=== PATIENT | female | born 1975 | race Caucasian/White ===

== ENCOUNTER 2017-10-22 23:54 | Observation (INO) ==
[2017-10-23 01:52] LABS: Basophils # 0.1 10*3/uL (0.0-0.2); Basophils % 0.5 % (0.0-0.8); Eosinophils # 0.2 10*3/uL (0.0-0.87); Eosinophils % 1.6 % (0.00-10.9); Hematocrit 38.5 VOL% (35.7-47.0); Hemoglobin 13.3 GM/DL (12.0-16.0); Immature Granulocytes % 0.6 %; Immature Granulocytes Absolute 0.06 #; Lymphocytes # 2.5 10*3/uL (1.4-4.0); Lymphocytes % 26.8 % (21.3-54.2); Mean Corpuscular HGB Conc 34.5 GM/DL (32-36); Mean Corpuscular Hemoglobin 31 PG (27-34); Mean Corpuscular Volume 90.6 FL (87-102); Monocytes # 0.7 10*3/uL (0.11-0.8); Monocytes % 7.4 % (1.7-12.7); Neutrophils % 63.1 % (38.7-73.9); Platelet Count 246 T/CUMM (130-400); Red Blood Count 4.25 MC/CUMM (3.8-5.5); Red Cell Distribution Width 13.6 % (9.3-17.3); White Blood Count 9.5 T/CUMM (4-12)
[2017-10-23 02:15] LABS: Alanine Aminotransferase < 9 U/L (13-56); Alkaline Phosphatase 101 U/L (45-117); Aspartate Amino Transferase 13 U/L (0-37); Blood Urea Nitrogen 7 MG/DL (7-18); Calcium 8.2 MG/DL (8.5-10.1); Glucose 298 MG/DL (74-106); Osmolality,Calculated 281.8 MOS/KG (273-304); Sodium 137 MMOL/L (136-145); Total Protein 6.7 G/DL (6.4-8.3)
[2017-10-23 02:17] LABS: Troponin I Only 0.264 NG/ML (0.00-0.045)
[2017-10-23] MEDS ORDERED: PROMETHAZINE 25 MG/1 ML VIAL IM PRN (03:03)
[2017-10-23] MEDS ORDERED: DEXTROSE 50% 25 GM/50 ML VIAL IV PRN (03:03)
[2017-10-23] MEDS ORDERED: GLUCAGON 1 MG VIAL IM PRN (03:03)
[2017-10-23] MEDS ORDERED: NICOTINE 21 MG/24 HR PATCH TRANSDERM PRN (03:11)
[2017-10-23] MEDS ORDERED: NITROGLYCERIN SL 0.4 MG TABLET SL PRN (03:12)
[2017-10-23 03:28] LABS: Barbiturates Screen,Urine Negative (Negative); Benzodiazepines Screen,Urine Negative (Negative); Cannabinoid Screen,Urine Negative (Negative); Opiate Screen,Urine Negative (Negative); Phencyclidine Screen,Urine Negative (Negative)
[2017-10-23] MEDS: NITROGLYCERIN 2% OINT 1 INCH/GM PACK TOP SCH ×3 (03:28→21:00)
[2017-10-23] MEDS: SODIUM CHLORIDE 0.9% 1,000 ML IV SCH ×3 (03:30→20:59)
[2017-10-23 03:34] LABS: Apearance,Urine CLEAR (Clear); Bilirubin,Urine Negative (Negative); Blood, Urine Small mg/dL (Negative); Glucose,Urine (UA) >=500 mg/dL (Negative); Ketones,Urine 80 mg/dL (Negative); Nitrite,Urine Negative (Negative); Protein,Urine Negative; Squamous Epithelial Cell,Urine Occasional /HPF (0-10); Urine Color Yellow (Yellow); Urine Specific Gravity 1.027 (1.001-1.035); Urine Urobilinogen < 2.0 EU/DL (0.2-1.0); WBC,Urine 1 /HPF (0-6)
[2017-10-23] MEDS: ONDANSETRON 4 MG/2 ML VIAL IV PRN ×2 (04:27→21:00)
[2017-10-23] MEDS: HYDROmorphone 2 MG/1 ML VIAL IV PRN ×5 (04:27→21:00)
[2017-10-23] MEDS: INSULIN REGULAR 100 UNIT/ML SUBCUT SCH ×3 (06:16→18:47)
[2017-10-23 07:25] LABS: Risk Ratio 5.13
[2017-10-23] MEDS: INSULIN GLARGINE 100 UNIT/ML SUBCUT SCH (09:56)
[2017-10-23] MEDS: OMEGA 3 ACID ETHYL ESTERS 1 GM CAPSULE PO SCH (10:50)
[2017-10-23] MEDS: ASPIRIN EC 81 MG TABLET PO SCH (10:51)
[2017-10-23] MEDS: ENOXAPARIN 40 MG/0.4 ML SYRINGE SUBCUT SCH (10:51)
[2017-10-23] MEDS: DOCUSATE SODIUM 100 MG CAPSULE PO SCH ×2 (10:51→21:00)
[2017-10-23] MEDS: ESCITALOPRAM 10 MG TABLET PO SCH (10:51)
[2017-10-23] MEDS: ATORVASTATIN 20 MG TABLET PO SCH (10:51)
[2017-10-23] MEDS: PANTOPRAZOLE 40 MG TABLET PO SCH (10:59)
[2017-10-23] MEDS: TAMSULOSIN 0.4 MG CAPSULE PO SCH (14:07)
[2017-10-23] MEDS ORDERED: ALPRAZolam 0.5 MG TABLET PO PRN (16:24)
[2017-10-24] MEDS: INSULIN REGULAR 100 UNIT/ML SUBCUT SCH ×3 (00:49→13:45)
[2017-10-24] MEDS: HYDROmorphone 2 MG/1 ML VIAL IV PRN ×3 (00:52→09:14)
[2017-10-24] MEDS: SODIUM CHLORIDE 0.9% 1,000 ML IV SCH ×2 (04:42→14:42)
[2017-10-24 07:09] LABS: Basophils % 0.5 % (0.0-0.8); Eosinophils # 0.2 10*3/uL (0.0-0.87); Eosinophils % 1.7 % (0.00-10.9); Hematocrit 36.9 VOL% (35.7-47.0); Hemoglobin 12.7 GM/DL (12.0-16.0); Immature Granulocytes % 0.5 %; Immature Granulocytes Absolute 0.04 #; Lymphocytes # 1.6 10*3/uL (1.4-4.0); Lymphocytes % 18.4 % (21.3-54.2); Mean Corpuscular HGB Conc 34.4 GM/DL (32-36); Mean Corpuscular Hemoglobin 31 PG (27-34); Mean Platelet Volume 10.5 FL (9.6-12.0); Monocytes # 0.7 10*3/uL (0.11-0.8); Monocytes % 7.6 % (1.7-12.7); Neutrophils # 6.3 10*3/uL (1.4-7.4); Neutrophils % 71.3 % (38.7-73.9); Platelet Count 225 T/CUMM (130-400); Red Cell Distribution Width 13.3 % (9.3-17.3); White Blood Count 8.8 T/CUMM (4-12)
[2017-10-24 07:26] LABS: Troponin I Only 0.537 NG/ML (0.00-0.045)
[2017-10-24 07:32] LABS: Calcium 7.2 MG/DL (8.5-10.1); Osmolality,Calculated 275.5 MOS/KG (273-304); Potassium 3.7 MMOL/L (3.5-5.1)
[2017-10-24] MEDS: ESCITALOPRAM 10 MG TABLET PO SCH (09:14)
[2017-10-24] MEDS: DOCUSATE SODIUM 100 MG CAPSULE PO SCH (09:14)
[2017-10-24] MEDS: ONDANSETRON 4 MG/2 ML VIAL IV PRN (09:14)
[2017-10-24] MEDS: ENOXAPARIN 40 MG/0.4 ML SYRINGE SUBCUT SCH (09:14)
[2017-10-24] MEDS: ASPIRIN EC 81 MG TABLET PO SCH (09:15)
[2017-10-24] MEDS: ATORVASTATIN 20 MG TABLET PO SCH (09:15)
[2017-10-24] MEDS: TAMSULOSIN 0.4 MG CAPSULE PO SCH (09:15)
[2017-10-24] MEDS: OMEGA 3 ACID ETHYL ESTERS 1 GM CAPSULE PO SCH (09:16)
[2017-10-24] MEDS: PANTOPRAZOLE 40 MG TABLET PO SCH (09:17)
[2017-10-24] MEDS: INSULIN GLARGINE 100 UNIT/ML SUBCUT SCH (09:17)
[2017-10-24] MEDS: NITROGLYCERIN 2% OINT 1 INCH/GM PACK TOP SCH (09:29)
[2017-10-26 09:02] VITALS: BP 119/68
== END 2017-10-24 13:00 | disposition home or self-care (01) ==
LOC: N.5E → SUATTDRO 10-23 01:09
PROVIDERS: ADMIT Internal Medicine; ATTEND Internal Medicine

== ENCOUNTER 2018-02-14 17:23 | Inpatient (IN) ==
[2018-02-14] MEDS ORDERED: NICOTINE 21 MG/24 HR PATCH TRANSDERM PRN (20:11)
[2018-02-14] MEDS ORDERED: GLUCAGON 1 MG VIAL IM PRN (20:11)
[2018-02-14] MEDS ORDERED: DEXTROSE 50% 25 GM/50 ML VIAL IV PRN ×2 (20:11→21:43)
[2018-02-14] MEDS ORDERED: ALBUTEROL 2.5 MG/3 ML NEB RESP TX PRN (20:11)
[2018-02-14] MEDS ORDERED: PROMETHAZINE 25 MG/1 ML VIAL IM PRN (20:11)
[2018-02-14] MEDS ORDERED: SODIUM CHLORIDE 0.9% 1,000 ML IV SCH (20:30)
[2018-02-14 20:35] LABS: Allen Test Positive; Pt O2 Delivery Device Room Air
[2018-02-14 20:37] LABS: ABG Base Excess -14.1 MMOL/L (-2.5-2.5); ABG HCO3 13.8 MMOL/L (20-26); ABG Oxygen Saturation 98.1 % (95-100); ABG PH 7.331 (7.35-7.45)
[2018-02-14 20:39] LABS: ABG PCO2 19.4 MM HG (35-48)
[2018-02-14] MEDS ORDERED: SODIUM BICARBONATE 50 MEQ/50 ML SYRINGE IV ONE ×2 (20:54→20:56)
[2018-02-14] MEDS ORDERED: SODIUM BICARB INJ 50 MEQ in SODIUM CHLORIDE 0.45% 1,000 ML IV SCH (21:00)
[2018-02-14 21:03] LABS: Basophils # 0.1 10*3/uL (0.0-0.2); Basophils % 0.4 % (0.0-0.8); Eosinophils # 0.1 10*3/uL (0.0-0.87); Eosinophils % 0.7 % (0.00-10.9); Hematocrit 37.2 VOL% (35.7-47.0); Hemoglobin 12.5 GM/DL (12.0-16.0); Immature Granulocytes % 1.2 %; Immature Granulocytes Absolute 0.16 #; Lymphocytes # 1.5 10*3/uL (1.4-4.0); Lymphocytes % 10.6 % (21.3-54.2); Mean Corpuscular HGB Conc 33.6 GM/DL (32-36); Mean Corpuscular Hemoglobin 31 PG (27-34); Mean Corpuscular Volume 93.5 FL (87-102); Mean Platelet Volume 9.7 FL (9.6-12.0); Monocytes # 1.2 10*3/uL (0.11-0.8); Monocytes % 8.8 % (1.7-12.7); Neutrophils # 10.8 10*3/uL (1.4-7.4); Neutrophils % 78.3 % (38.7-73.9); Platelet Count 303 T/CUMM (130-400); Red Blood Count 3.98 MC/CUMM (3.8-5.5); Red Cell Distribution Width 13.2 % (9.3-17.3); White Blood Count 13.7 T/CUMM (4-12)
[2018-02-14] MEDS: HYDROmorphone 2 MG/1 ML VIAL IV SCH ×2 (21:09→23:45)
[2018-02-14 21:33] LABS: Albumin 3.1 G/DL (3.4-5.0); Bilirubin,Total 0.8 MG/DL (0.2-1.0); Calcium 8.1 MG/DL (8.5-10.1); Lactic Acid 0.6 MMOL/L (0.4-2.0); Osmolality,Calculated 272.2 MOS/KG (273-304); Potassium 4.5 MMOL/L (3.5-5.1); Total Protein 6.7 G/DL (6.4-8.3)
[2018-02-14] MEDS ORDERED: MAGNESIUM SULF RIDER 4 GM in PREMIX 1 EACH IV PRN (21:43)
[2018-02-14] MEDS ORDERED: SODIUM BICARB INJ 100 MEQ in STERILE WATER INJ 400 ML IV PRN (21:43)
[2018-02-14] MEDS ORDERED: SODIUM PHOSPHATE INJ 17.5 MMOL in SODIUM CHLORIDE 0.9% 250 ML IV PRN (21:43)
[2018-02-14] MEDS ORDERED: SODIUM CHLORIDE 0.9% 1,000 ML IV ONE (21:43)
[2018-02-14] MEDS ORDERED: INSULIN REGULAR 100 UNIT/ML IV ONE (21:43)
[2018-02-14] MEDS: PANTOPRAZOLE 40 MG VIAL IV SCH (22:44)
[2018-02-14] MEDS: cefTRIAXone 1,000 MG in SYRINGE 1 EACH IV SCH (22:45)
[2018-02-14] MEDS: SODIUM CHLORIDE 0.9% 1,000 ML IV SCH (23:35)
[2018-02-14] MEDS: INSULIN REGULAR DRIP 100 ML IV SCH (23:35)
[2018-02-15 00:02] LABS: Allen Test Positive; Pt O2 Delivery Device Room Air
[2018-02-15 00:03] LABS: ABG Base Excess -13.2 MMOL/L (-2.5-2.5); ABG HCO3 11.5 MMOL/L (20-26); ABG Oxygen Saturation 97.4 % (95-100); ABG PCO2 24.1 MM HG (35-48); ABG PH 7.295 (7.35-7.45); ABG PO2 109.4 MM HG (80-95); ABG TCO2 12.2 MMOL/L (23-27)
[2018-02-15 01:23] LABS: Apearance,Urine CLEAR (Clear); Bacteria,Urine Occasional /HPF (Few); Bilirubin,Urine Negative (Negative); Blood, Urine Small mg/dL (Negative); Glucose,Urine (UA) >=500 mg/dL (Negative); Hyaline Casts,Urine 1 /LPF (0-3); Ketones,Urine 80 mg/dL (Negative); Mucus,Urine Occasional /LPF (Occasional); Nitrite,Urine Negative (Negative); Protein,Urine 100 MG/DL; RBC,Urine 13 /HPF (0-4); Squamous Epithelial Cell,Urine Occasional /HPF (0-10); Urine Color Amber (Yellow); Urine Specific Gravity 1.012 (1.001-1.035); Urine Urobilinogen < 2.0 EU/DL (0.2-1.0); WBC,Urine 60 /HPF (0-6)
[2018-02-15] MEDS: SODIUM CHLORIDE 0.9% 1,000 ML IV SCH (01:35)
[2018-02-15] MEDS: HYDROmorphone 2 MG/1 ML VIAL IV PRN ×6 (01:52→23:55)
[2018-02-15 02:10] LABS: ABG Base Excess -7.8 MMOL/L (-2.5-2.5); ABG HCO3 18.1 MMOL/L (20-26); ABG PCO2 33.4 MM HG (35-48); ABG PH 7.324 (7.35-7.45); ABG PO2 95.5 MM HG (80-95); ABG TCO2 15.6 MMOL/L (23-27); Allen Test Positive; Pt O2 Delivery Device Room Air
[2018-02-15] MEDS: DEXTROSE 5% NACL 0.9% 1,000 ML IV SCH ×4 (02:30→10:32)
[2018-02-15] MEDS ORDERED: SODIUM CHLORIDE 0.9% 1,000 ML IV SCH (02:43)
[2018-02-15 04:08] LABS: Barbiturates Screen,Urine Negative (Negative); Benzodiazepines Screen,Urine Negative (Negative); Cannabinoid Screen,Urine Negative (Negative); Opiate Screen,Urine Positive (Negative); Phencyclidine Screen,Urine Negative (Negative)
[2018-02-15 04:26] LABS: ABG HCO3 18.7 MMOL/L (20-26); ABG Oxygen Saturation 96.8 % (95-100); ABG PCO2 33.9 MM HG (35-48); ABG PH 7.359 (7.35-7.45); ABG PO2 99.6 MM HG (80-95); ABG TCO2 19.7 MMOL/L (23-27); Allen Test Positive; Pt O2 Delivery Device Room Air
[2018-02-15] MEDS: INSULIN REGULAR 100 UNIT/ML SUBCUT SCH ×7 (05:29→21:01)
[2018-02-15 05:47] LABS: Basophils % 0.4 % (0.0-0.8); Eosinophils # 0.1 10*3/uL (0.0-0.87); Eosinophils % 1.9 % (0.00-10.9); Hematocrit 32.8 VOL% (35.7-47.0); Hemoglobin 11.1 GM/DL (12.0-16.0); Immature Granulocytes % 0.8 %; Immature Granulocytes Absolute 0.06 #; Lymphocytes # 1.5 10*3/uL (1.4-4.0); Lymphocytes % 19.4 % (21.3-54.2); Mean Corpuscular HGB Conc 33.8 GM/DL (32-36); Mean Corpuscular Hemoglobin 32 PG (27-34); Mean Corpuscular Volume 93.2 FL (87-102); Mean Platelet Volume 9.8 FL (9.6-12.0); Monocytes # 0.5 10*3/uL (0.11-0.8); Monocytes % 6.7 % (1.7-12.7); Neutrophils # 5.4 10*3/uL (1.4-7.4); Neutrophils % 70.8 % (38.7-73.9); Platelet Count 251 T/CUMM (130-400); Red Blood Count 3.52 MC/CUMM (3.8-5.5); Red Cell Distribution Width 13.2 % (9.3-17.3); White Blood Count 7.6 T/CUMM (4-12)
[2018-02-15 05:55] LABS: Calcium 7.4 MG/DL (8.5-10.1); Osmolality,Calculated 282.4 MOS/KG (273-304); Potassium 3.1 MMOL/L (3.5-5.1)
[2018-02-15 07:32] LABS: Calcium 7.4 MG/DL (8.5-10.1); Osmolality,Calculated 282.3 MOS/KG (273-304); Potassium 3.3 MMOL/L (3.5-5.1)
[2018-02-15] MEDS: MAGNESIUM SULF RIDER 2 GM in PREMIX 1 EACH IV PRN (07:55)
[2018-02-15] MEDS: POTASSIUM CHLORIDE RIDER 10 MEQ in PREMIX 1 EACH IV PRN ×3 (07:55→10:28)
[2018-02-15] MEDS ORDERED: SODIUM CHLORIDE 0.9% 500 ML IV ONE ×2 (08:27→15:46)
[2018-02-15] MEDS: DEXT 5% NACL 0.45% KCL 40 MEQ 40 MEQ/1,000 ML BAG IV SCH ×4 (09:50→19:16)
[2018-02-15] MEDS: HYDROmorphone 2 MG/1 ML VIAL IV SCH (10:38)
[2018-02-15 11:36] LABS: Calcium 7.3 MG/DL (8.5-10.1); Osmolality,Calculated 279.5 MOS/KG (273-304); Potassium 3.8 MMOL/L (3.5-5.1)
[2018-02-15] MEDS ORDERED: BELLADONNA/OPIUM 30 MG SUPP RECTAL PRN (14:06)
[2018-02-15] MEDS ORDERED: SODIUM CHLORIDE 0.45% 1,000 ML IV SCH (14:43)
[2018-02-15 15:30] LABS: Calcium 7.5 MG/DL (8.5-10.1); Osmolality,Calculated 278.5 MOS/KG (273-304); Potassium 3.8 MMOL/L (3.5-5.1)
[2018-02-15] MEDS: POTASSIUM CHLORIDE INJ 40 MEQ in SODIUM CHLORIDE 0.45% 1,000 ML IV SCH ×2 (15:50→18:58)
[2018-02-15] MEDS: INSULIN REGULAR DRIP 100 ML IV SCH (18:57)
[2018-02-15 19:49] LABS: Calcium 7.7 MG/DL (8.5-10.1); Osmolality,Calculated 273.4 MOS/KG (273-304); Potassium 4.2 MMOL/L (3.5-5.1)
[2018-02-15] MEDS: PANTOPRAZOLE 40 MG VIAL IV SCH (20:35)
[2018-02-15] MEDS: cefTRIAXone 1,000 MG in SYRINGE 1 EACH IV SCH (22:11)
[2018-02-15 23:03] LABS: Calcium 7.7 MG/DL (8.5-10.1); Osmolality,Calculated 274.4 MOS/KG (273-304); Potassium 3.6 MMOL/L (3.5-5.1)
[2018-02-16] MEDS: INSULIN REGULAR 100 UNIT/ML SUBCUT SCH ×6 (00:13→21:00)
[2018-02-16] MEDS: POTASSIUM CHLORIDE INJ 40 MEQ in SODIUM CHLORIDE 0.45% 1,000 ML IV SCH ×2 (02:19→04:44)
[2018-02-16] MEDS: INSULIN REGULAR DRIP 100 ML IV SCH (02:21)
[2018-02-16] MEDS: DEXT 5% NACL 0.45% KCL 40 MEQ 40 MEQ/1,000 ML BAG IV SCH ×4 (02:22→12:25)
[2018-02-16] MEDS: DEXTROSE 5% NACL 0.9% 1,000 ML IV SCH (02:22)
[2018-02-16] MEDS: HYDROmorphone 2 MG/1 ML VIAL IV PRN ×8 (02:43→23:42)
[2018-02-16 04:02] LABS: Calcium 7.6 MG/DL (8.5-10.1); Osmolality,Calculated 277.3 MOS/KG (273-304); Potassium 3.8 MMOL/L (3.5-5.1)
[2018-02-16] MEDS: MAGNESIUM SULF RIDER 2 GM in PREMIX 1 EACH IV PRN (04:46)
[2018-02-16] MEDS: POTASSIUM CHLORIDE RIDER 10 MEQ in PREMIX 1 EACH IV PRN ×2 (04:47→06:48)
[2018-02-16] MEDS ORDERED: INSULIN NPH 100 UNIT/ML SUBCUT ONE (08:50)
[2018-02-16] MEDS ORDERED: DEXTROSE 50% 25 GM/50 ML VIAL IV PRN (08:51)
[2018-02-16] MEDS ORDERED: GLUCAGON 1 MG VIAL IM PRN (08:51)
[2018-02-16] MEDS: TICAGRELOR 90 MG TABLET PO SCH ×2 (12:08→20:59)
[2018-02-16] MEDS: ALPRAZolam 0.5 MG TABLET PO PRN (15:41)
[2018-02-16] MEDS: INSULIN NPH 100 UNIT/ML SUBCUT SCH (17:13)
[2018-02-16] MEDS: cefTRIAXone 1,000 MG in SYRINGE 1 EACH IV SCH (20:58)
[2018-02-17] MEDS: HYDROmorphone 2 MG/1 ML VIAL IV PRN ×7 (02:44→21:08)
[2018-02-17 04:48] LABS: Calcium 8.3 MG/DL (8.5-10.1); Osmolality,Calculated 281.3 MOS/KG (273-304); Potassium 4.2 MMOL/L (3.5-5.1)
[2018-02-17] MEDS: TICAGRELOR 90 MG TABLET PO SCH ×2 (08:18→21:08)
[2018-02-17] MEDS: INSULIN REGULAR 100 UNIT/ML SUBCUT SCH ×4 (08:18→21:08)
[2018-02-17] MEDS: INSULIN NPH 100 UNIT/ML SUBCUT SCH ×2 (08:19→16:47)
[2018-02-17] MEDS: CIPROFLOXACIN 500 MG TABLET PO SCH ×2 (11:22→21:08)
[2018-02-17] MEDS: ALPRAZolam 0.5 MG TABLET PO PRN (12:25)
[2018-02-18] MEDS: HYDROmorphone 2 MG/1 ML VIAL IV PRN ×8 (00:15→23:37)
[2018-02-18] MEDS: CIPROFLOXACIN 500 MG TABLET PO SCH ×2 (08:29→20:48)
[2018-02-18] MEDS: INSULIN REGULAR 100 UNIT/ML SUBCUT SCH ×4 (08:29→20:48)
[2018-02-18] MEDS: INSULIN NPH 100 UNIT/ML SUBCUT SCH ×2 (08:30→16:02)
[2018-02-18] MEDS: TICAGRELOR 90 MG TABLET PO SCH ×2 (08:30→20:48)
[2018-02-18] MEDS ORDERED: HYOSCYAMINE 0.125 MG TABLET PO PRN (15:34)
[2018-02-18] MEDS: ALPRAZolam 0.5 MG TABLET PO PRN (16:01)
[2018-02-18] MEDS: DOCUSATE SODIUM 100 MG CAPSULE PO SCH (20:48)
[2018-02-19] MEDS: HYDROmorphone 2 MG/1 ML VIAL IV PRN ×4 (02:48→11:23)
[2018-02-19] MEDS: CIPROFLOXACIN 500 MG TABLET PO SCH (08:27)
[2018-02-19] MEDS: TICAGRELOR 90 MG TABLET PO SCH (08:27)
[2018-02-19] MEDS: INSULIN NPH 100 UNIT/ML SUBCUT SCH (08:27)
[2018-02-19] MEDS: INSULIN REGULAR 100 UNIT/ML SUBCUT SCH (08:27)
[2018-02-19] MEDS: DOCUSATE SODIUM 100 MG CAPSULE PO SCH (08:27)
[2018-02-19] MEDS ORDERED: POLYETHYLENE GLYCOL POWDER 17 GM PACK PO SCH (09:00)
[2018-02-19] MEDS ORDERED: INSULIN LISPRO 100 UNIT/ML SUBCUT SCH ×2 (11:30→12:00)
[2018-02-19 11:38] VITALS: BP 123/85
== END 2018-02-19 15:06 | disposition home or self-care (01) | DRG 638 ==
LOC: N.CC 19:30 → SUATTDRO 19:30 → N.2E 02-16 10:11
PROVIDERS: ADMIT Internal Medicine; ATTEND Hospitalist

== ENCOUNTER 2018-03-04 18:52 | Inpatient (IN) ==
[2018-03-04] MEDS ORDERED: SODIUM CHLORIDE 0.9% 1,000 ML IV STA ×2 (19:24→20:15)
[2018-03-04] MEDS ORDERED: ONDANSETRON 4 MG/2 ML VIAL IV STA (19:24)
[2018-03-04] MEDS ORDERED: PANTOPRAZOLE 40 MG VIAL IV STA (19:24)
[2018-03-04] MEDS ORDERED: HYDROmorphone 2 MG/1 ML VIAL IV ONE (19:29)
[2018-03-04] MEDS ORDERED: HYDROmorphone 2 MG/1 ML VIAL ONE (19:30)
[2018-03-04 19:41] LABS: Basophils # 0.1 10*3/uL (0.0-0.2); Basophils % 0.6 % (0.0-0.8); Eosinophils % 0.1 % (0.00-10.9); Hemoglobin 16.6 GM/DL (12.0-16.0); Immature Granulocytes % 1.2 %; Immature Granulocytes Absolute 0.22 #; Lymphocytes # 2.4 10*3/uL (1.4-4.0); Lymphocytes % 13.2 % (21.3-54.2); Mean Corpuscular HGB Conc 32.5 GM/DL (32-36); Mean Corpuscular Hemoglobin 31 PG (27-34); Mean Corpuscular Volume 95.1 FL (87-102); Mean Platelet Volume 10.1 FL (9.6-12.0); Monocytes # 0.7 10*3/uL (0.11-0.8); Neutrophils # 14.5 10*3/uL (1.4-7.4); Neutrophils % 80.9 % (38.7-73.9); Platelet Count 480 T/CUMM (130-400); Red Blood Count 5.36 MC/CUMM (3.8-5.5); Red Cell Distribution Width 13.5 % (9.3-17.3); White Blood Count 17.9 T/CUMM (4-12)
[2018-03-04] MEDS ORDERED: INSULIN REGULAR 100 UNIT/ML IV STA (19:51)
[2018-03-04 19:54] LABS: Apearance,Urine CLOUDY (Clear); Bacteria,Urine Occasional /HPF (Few); Bilirubin,Urine Negative (Negative); Blood, Urine Large mg/dL (Negative); Glucose,Urine (UA) >=500 mg/dL (Negative); Hyaline Casts,Urine 7 /LPF (0-3); Ketones,Urine 80 mg/dL (Negative); Mucus,Urine Occasional /LPF (Occasional); Nitrite,Urine Negative (Negative); Protein,Urine 30 MG/DL; RBC,Urine 23 /HPF (0-4); Squamous Epithelial Cell,Urine Occasional /HPF (0-10); Urine Color Yellow (Yellow); Urine Specific Gravity 1.022 (1.001-1.035); Urine Urobilinogen < 2.0 EU/DL (0.2-1.0); WBC,Urine 13 /HPF (0-6)
[2018-03-04 20:00] LABS: Alanine Aminotransferase 15 U/L (13-56); Albumin 4.8 G/DL (3.4-5.0); Alkaline Phosphatase 140 U/L (45-117); Amylase 52 U/L (25-115); Aspartate Amino Transferase 19 U/L (0-37); Blood Urea Nitrogen 16 MG/DL (7-18); Calcium 10.7 MG/DL (8.5-10.1); Osmolality,Calculated 279.2 MOS/KG (273-304); Potassium 5.1 MMOL/L (3.5-5.1); Sodium 127 MMOL/L (136-145); Total Protein 10.1 G/DL (6.4-8.3)
[2018-03-04] MEDS ORDERED: cefTRIAXone 1,000 MG in SODIUM CHLORIDE 0.9% 100 ML IV STA (20:01)
[2018-03-04 20:03] LABS: Lactic Acid 2.6 MMOL/L (0.4-2.0)
[2018-03-04 20:04] LABS: Glucose 523 MG/DL (74-106)
[2018-03-04 20:14] LABS: Allen Test Positive
[2018-03-04 20:19] LABS: ABG Base Excess -26.1 MMOL/L (-2.5-2.5); ABG HCO3 7.5 MMOL/L (20-26); ABG Oxygen Saturation 98.4 % (95-100)
[2018-03-04 20:26] LABS: INR 0.9; PT Patient Result 10.1 SECS; Partial Thromboplastin Time 32.4 SECS (0-40)
[2018-03-04 20:27] LABS: ABG PH 7.157 (7.35-7.45); ABG TCO2 8.4 MMOL/L (23-27)
[2018-03-04 20:28] LABS: ABG PCO2 8.4 MM HG (35-48)
[2018-03-04] MEDS ORDERED: SODIUM BICARBONATE 50 MEQ/50 ML VIAL IV ONE (20:34)
[2018-03-04] MEDS ORDERED: SODIUM PHOSPHATE INJ 18.1 MMOL in SODIUM CHLORIDE 0.9% 250 ML IV PRN (20:41)
[2018-03-04] MEDS ORDERED: DEXTROSE 50% 25 GM/50 ML VIAL IV PRN (20:41)
[2018-03-04] MEDS ORDERED: DEXTROSE 50% 25 GM/50 ML SYRINGE IV PRN ×2 (20:41)
[2018-03-04] MEDS ORDERED: SODIUM CHLORIDE 0.9% 1,000 ML IV ONE (20:41)
[2018-03-04] MEDS ORDERED: INSULIN LISPRO 100 UNIT/ML SUBCUT PRN (20:41)
[2018-03-04] MEDS ORDERED: MAGNESIUM SULF RIDER 2 GM in PREMIX 1 EACH IV PRN (20:41)
[2018-03-04] MEDS ORDERED: ACETAMINOPHEN 325 MG TABLET PO PRN (20:41)
[2018-03-04] MEDS ORDERED: INSULIN REGULAR 100 UNIT/ML IV ONE (20:41)
[2018-03-04] MEDS ORDERED: MAGNESIUM SULF RIDER 4 GM in PREMIX 1 EACH IV PRN (20:41)
[2018-03-04] MEDS ORDERED: GLUCAGON 1 MG VIAL IM PRN (20:41)
[2018-03-04] MEDS ORDERED: SODIUM BICARBONATE 50 MEQ/50 ML SYRINGE IV ONE (20:43)
[2018-03-04] MEDS ORDERED: DOCUSATE SODIUM 100 MG CAPSULE PO SCH (21:00)
[2018-03-04] MEDS: DOCUSATE SODIUM 100 MG CAPSULE PO SCH (21:25)
[2018-03-04] MEDS: TICAGRELOR 90 MG TABLET PO SCH (21:25)
[2018-03-04] MEDS: ALPRAZolam 0.5 MG TABLET PO PRN (21:25)
[2018-03-04] MEDS: HYDROmorphone 2 MG/1 ML VIAL IV PRN (21:28)
[2018-03-04] MEDS: ONDANSETRON 4 MG/2 ML VIAL IV PRN (21:28)
[2018-03-04] MEDS: ATORVASTATIN 80 MG TABLET PO SCH (21:30)
[2018-03-04] MEDS ORDERED: SODIUM BICARB INJ 100 MEQ in STERILE WATER INJ 400 ML IV PRN (21:30)
[2018-03-04] MEDS ORDERED: INSULIN REGULAR DRIP 100 ML IV SCH (21:30)
[2018-03-04 22:05] LABS: Calcium 9.8 MG/DL (8.5-10.1); Osmolality,Calculated 286.5 MOS/KG (273-304); Potassium 4.5 MMOL/L (3.5-5.1)
[2018-03-04] MEDS: MEROPENEM 1,000 MG in SODIUM CHLORIDE 0.9% 100 ML IV SCH (22:07)
[2018-03-04] MEDS: SODIUM CHLORIDE 0.9% 1,000 ML IV SCH (23:27)
[2018-03-05] MEDS ORDERED: INSULIN REGULAR 100 UNIT/ML SUBCUT SCH
[2018-03-05 01:01] LABS: Basophils # 0.1 10*3/uL (0.0-0.2); Basophils % 0.3 % (0.0-0.8); Hematocrit 40.3 VOL% (35.7-47.0); Hemoglobin 13.6 GM/DL (12.0-16.0); Immature Granulocytes % 1.3 %; Immature Granulocytes Absolute 0.37 #; Lymphocytes # 1.3 10*3/uL (1.4-4.0); Lymphocytes % 4.5 % (21.3-54.2); Mean Corpuscular HGB Conc 33.7 GM/DL (32-36); Mean Corpuscular Hemoglobin 32 PG (27-34); Mean Corpuscular Volume 93.3 FL (87-102); Mean Platelet Volume 9.5 FL (9.6-12.0); Monocytes # 1.6 10*3/uL (0.11-0.8); Monocytes % 5.5 % (1.7-12.7); Neutrophils # 24.8 10*3/uL (1.4-7.4); Neutrophils % 88.4 % (38.7-73.9); Platelet Count 361 T/CUMM (130-400); Red Blood Count 4.32 MC/CUMM (3.8-5.5); Red Cell Distribution Width 13.4 % (9.3-17.3); White Blood Count 28.1 T/CUMM (4-12)
[2018-03-05] MEDS ORDERED: SODIUM CHLORIDE 0.9% 1,000 ML IV SCH (01:21)
[2018-03-05 01:33] LABS: Band Neutrophils 1 % (0-10); Lymphocytes 7 % (20-55); Myelocytes 1 %; Segmented Neutrophils 84 % (50-85)
[2018-03-05 01:34] LABS: Platelet Estimate Normal
[2018-03-05 01:35] LABS: Total Cells Counted 100
[2018-03-05 01:54] LABS: Osmolality,Calculated 282.8 MOS/KG (273-304); Osmolality,Calculated 284.7 MOS/KG (273-304); Potassium 4.6 MMOL/L (3.5-5.1)
[2018-03-05 01:56] LABS: Risk Ratio 3.89
[2018-03-05 01:58] LABS: Albumin 3.6 G/DL (3.4-5.0); Bilirubin,Total 0.6 MG/DL (0.2-1.0); CKMB % 5.2 %; Calcium 8.9 MG/DL (8.5-10.1); Osmolality,Calculated 286.5 MOS/KG (273-304); Potassium 4.5 MMOL/L (3.5-5.1); Total Protein 7.8 G/DL (6.4-8.3)
[2018-03-05 02:02] LABS: Troponin I 1.79 NG/ML (0.00-0.045)
[2018-03-05] MEDS: HYDROmorphone 2 MG/1 ML VIAL IV PRN ×5 (02:12→20:24)
[2018-03-05] MEDS: SODIUM CHLORIDE 0.45% 1,000 ML IV SCH ×2 (03:45→19:47)
[2018-03-05] MEDS: SODIUM CHLORIDE 0.9% 1,000 ML IV SCH ×3 (03:46→13:29)
[2018-03-05 03:52] LABS: ABG Base Excess -17.9 MMOL/L (-2.5-2.5); ABG HCO3 6.5 MMOL/L (20-26); ABG Oxygen Saturation 97.8 % (95-100); ABG PH 7.259 (7.35-7.45); ABG PO2 113.3 MM HG (80-95); Allen Test Positive
[2018-03-05 04:00] LABS: ABG PCO2 14.9 MM HG (35-48)
[2018-03-05] MEDS ORDERED: SODIUM BICARBONATE 50 MEQ/50 ML SYRINGE IV ONE ×2 (04:04→04:07)
[2018-03-05] MEDS: DEXTROSE 5% NACL 0.45% 1,000 ML IV SCH ×2 (05:15→19:47)
[2018-03-05 07:52] LABS: Calcium 8.5 MG/DL (8.5-10.1); Osmolality,Calculated 283.4 MOS/KG (273-304); Potassium 3.7 MMOL/L (3.5-5.1)
[2018-03-05] MEDS ORDERED: PANTOPRAZOLE 40 MG VIAL IV SCH (09:00)
[2018-03-05] MEDS: PANTOPRAZOLE 40 MG TABLET PO SCH (09:03)
[2018-03-05] MEDS: ASPIRIN EC 81 MG TABLET PO SCH (09:03)
[2018-03-05] MEDS: DOCUSATE SODIUM 100 MG CAPSULE PO SCH ×2 (09:04→20:21)
[2018-03-05] MEDS: INSULIN GLARGINE 100 UNIT/ML SUBCUT SCH (09:04)
[2018-03-05] MEDS: LISINOPRIL 2.5 MG TABLET PO SCH (09:04)
[2018-03-05] MEDS: TICAGRELOR 90 MG TABLET PO SCH ×2 (09:05→20:21)
[2018-03-05] MEDS: ALPRAZolam 0.5 MG TABLET PO PRN ×3 (09:13→20:21)
[2018-03-05] MEDS: MEROPENEM 1,000 MG in SODIUM CHLORIDE 0.9% 100 ML IV SCH ×2 (09:22→20:26)
[2018-03-05] MEDS ORDERED: MAGNESIUM SULF RIDER 4 GM in PREMIX 1 EACH IV PRN (09:56)
[2018-03-05] MEDS: POTASSIUM CHLORIDE RIDER 10 MEQ in PREMIX 1 EACH IV PRN ×2 (10:30→11:49)
[2018-03-05 12:44] LABS: Calcium 8.2 MG/DL (8.5-10.1); Osmolality,Calculated 274.7 MOS/KG (273-304); Potassium 3.6 MMOL/L (3.5-5.1)
[2018-03-05] MEDS ORDERED: DEXTROSE 50% 25 GM/50 ML VIAL IV PRN (13:10)
[2018-03-05] MEDS ORDERED: GLUCAGON 1 MG VIAL IM PRN (13:10)
[2018-03-05 13:28] LABS: Barbiturates Screen,Urine Negative (Negative); Benzodiazepines Screen,Urine Positive (Negative); Cannabinoid Screen,Urine Negative (Negative); Opiate Screen,Urine Positive (Negative); Phencyclidine Screen,Urine Negative (Negative)
[2018-03-05] MEDS ORDERED: cefTRIAXone 1,000 MG in SYRINGE 1 EACH IV SCH (14:00)
[2018-03-05 16:50] LABS: Calcium 8.2 MG/DL (8.5-10.1); Osmolality,Calculated 274.5 MOS/KG (273-304); Potassium 3.7 MMOL/L (3.5-5.1)
[2018-03-05] MEDS: INSULIN LISPRO 100 UNIT/ML SUBCUT SCH ×2 (17:11→20:33)
[2018-03-05 17:34] LABS: CKMB % 7.8 %
[2018-03-05] MEDS: NITROGLYCERIN 2% OINT 1 INCH/GM PACK TOP SCH (17:45)
[2018-03-05] MEDS: CARVEDILOL 3.125 MG TABLET PO SCH ×2 (17:45→17:46)
[2018-03-05] MEDS: ENOXAPARIN 40 MG/0.4 ML SYRINGE SUBCUT SCH (20:21)
[2018-03-05] MEDS: ATORVASTATIN 80 MG TABLET PO SCH (20:21)
[2018-03-05] MEDS: ONDANSETRON 4 MG/2 ML VIAL IV PRN (20:22)
[2018-03-06] MEDS: NITROGLYCERIN 2% OINT 1 INCH/GM PACK TOP SCH ×2 (00:05→06:08)
[2018-03-06] MEDS: ONDANSETRON 4 MG/2 ML VIAL IV PRN (01:57)
[2018-03-06] MEDS: HYDROmorphone 2 MG/1 ML VIAL IV PRN ×5 (01:59→20:55)
[2018-03-06 03:20] LABS: Basophils % 0.4 % (0.0-0.8); Eosinophils # 0.2 10*3/uL (0.0-0.87); Eosinophils % 2.8 % (0.00-10.9); Hematocrit 33.6 VOL% (35.7-47.0); Hemoglobin 11.4 GM/DL (12.0-16.0); Immature Granulocytes % 0.4 %; Immature Granulocytes Absolute 0.03 #; Lymphocytes % 24.1 % (21.3-54.2); Mean Corpuscular HGB Conc 33.9 GM/DL (32-36); Mean Corpuscular Hemoglobin 31 PG (27-34); Mean Corpuscular Volume 91.1 FL (87-102); Mean Platelet Volume 9.8 FL (9.6-12.0); Monocytes # 0.7 10*3/uL (0.11-0.8); Monocytes % 8.6 % (1.7-12.7); Neutrophils # 5.3 10*3/uL (1.4-7.4); Neutrophils % 63.7 % (38.7-73.9); Platelet Count 257 T/CUMM (130-400); Red Blood Count 3.69 MC/CUMM (3.8-5.5); Red Cell Distribution Width 13.5 % (9.3-17.3); White Blood Count 8.3 T/CUMM (4-12)
[2018-03-06 03:42] LABS: Calcium 7.4 MG/DL (8.5-10.1); Osmolality,Calculated 278.1 MOS/KG (273-304); Potassium 2.9 MMOL/L (3.5-5.1)
[2018-03-06 04:18] LABS: Alanine Aminotransferase 11 U/L (13-56); Albumin 2.7 G/DL (3.4-5.0); Alkaline Phosphatase 69 U/L (45-117); Aspartate Amino Transferase 33 U/L (0-37); Bilirubin,Total < 0.39 MG/DL (0.2-1.0); Blood Urea Nitrogen 6 MG/DL (7-18); Calcium 7.5 MG/DL (8.5-10.1); Glucose 69 MG/DL (74-106); Osmolality,Calculated 276.3 MOS/KG (273-304); Potassium 2.9 MMOL/L (3.5-5.1); Sodium 141 MMOL/L (136-145); Total Protein 5.9 G/DL (6.4-8.3)
[2018-03-06] MEDS: MAGNESIUM SULF RIDER 2 GM in PREMIX 1 EACH IV PRN (05:32)
[2018-03-06] MEDS: POTASSIUM CHLORIDE RIDER 10 MEQ in PREMIX 1 EACH IV PRN ×5 (07:51→12:01)
[2018-03-06] MEDS: INSULIN LISPRO 100 UNIT/ML SUBCUT SCH ×4 (07:54→20:55)
[2018-03-06] MEDS ORDERED: MAGNESIUM SULF RIDER 4 GM in PREMIX 1 EACH IV PRN (08:24)
[2018-03-06] MEDS ORDERED: MAGNESIUM SULF RIDER 2 GM in PREMIX 1 EACH IV PRN ×2 (08:24→14:05)
[2018-03-06] MEDS: SODIUM CHLORIDE 0.9% 1,000 ML IV SCH ×2 (08:48→20:54)
[2018-03-06] MEDS: CARVEDILOL 3.125 MG TABLET PO SCH ×2 (08:49→16:33)
[2018-03-06] MEDS: PANTOPRAZOLE 40 MG TABLET PO SCH (08:49)
[2018-03-06] MEDS: ALPRAZolam 0.5 MG TABLET PO PRN ×2 (08:49→16:33)
[2018-03-06] MEDS: TICAGRELOR 90 MG TABLET PO SCH ×2 (08:49→20:55)
[2018-03-06] MEDS: ASPIRIN EC 81 MG TABLET PO SCH (08:49)
[2018-03-06] MEDS: DOCUSATE SODIUM 100 MG CAPSULE PO SCH ×2 (08:49→20:55)
[2018-03-06] MEDS: ENOXAPARIN 40 MG/0.4 ML SYRINGE SUBCUT SCH ×2 (08:50→12:42)
[2018-03-06] MEDS: MEROPENEM 1,000 MG in SODIUM CHLORIDE 0.9% 100 ML IV SCH ×2 (08:51→20:54)
[2018-03-06 08:53] LABS: CKMB % 6.7 %
[2018-03-06] MEDS: INSULIN GLARGINE 100 UNIT/ML SUBCUT SCH (08:54)
[2018-03-06] MEDS: LISINOPRIL 2.5 MG TABLET PO SCH (08:54)
[2018-03-06 08:56] LABS: Troponin I 4.98 NG/ML (0.00-0.045)
[2018-03-06 13:51] LABS: Calcium 7.4 MG/DL (8.5-10.1); Osmolality,Calculated 277.3 MOS/KG (273-304); Potassium 3.7 MMOL/L (3.5-5.1)
[2018-03-06] MEDS ORDERED: POTASSIUM CHLORIDE RIDER 10 MEQ in PREMIX 1 EACH IV PRN (14:05)
[2018-03-06] MEDS ORDERED: SERTRALINE 25 MG TABLET PO ONE (16:46)
[2018-03-06] MEDS: ATORVASTATIN 80 MG TABLET PO SCH (20:55)
[2018-03-06] MEDS ORDERED: SERTRALINE 25 MG TABLET PO SCH (21:00)
[2018-03-06] MEDS ORDERED: SODIUM CHLORIDE 0.9% 1,000 ML IV SCH (22:00)
[2018-03-07] MEDS: HYDROmorphone 2 MG/1 ML VIAL IV PRN ×6 (01:07→23:44)
[2018-03-07 03:38] LABS: Basophils % 0.6 % (0.0-0.8); Eosinophils # 0.2 10*3/uL (0.0-0.87); Eosinophils % 4.2 % (0.00-10.9); Hematocrit 33.2 VOL% (35.7-47.0); Hemoglobin 11.4 GM/DL (12.0-16.0); Immature Granulocytes % 0.6 %; Immature Granulocytes Absolute 0.03 #; Lymphocytes # 1.5 10*3/uL (1.4-4.0); Mean Corpuscular HGB Conc 34.3 GM/DL (32-36); Mean Corpuscular Hemoglobin 31 PG (27-34); Mean Corpuscular Volume 90.5 FL (87-102); Mean Platelet Volume 9.8 FL (9.6-12.0); Monocytes # 0.5 10*3/uL (0.11-0.8); Monocytes % 10.1 % (1.7-12.7); Neutrophils # 2.9 10*3/uL (1.4-7.4); Neutrophils % 55.5 % (38.7-73.9); Platelet Count 216 T/CUMM (130-400); Red Blood Count 3.67 MC/CUMM (3.8-5.5); Red Cell Distribution Width 13.2 % (9.3-17.3); White Blood Count 5.3 T/CUMM (4-12)
[2018-03-07 04:08] LABS: Calcium 7.5 MG/DL (8.5-10.1); Potassium 3.1 MMOL/L (3.5-5.1)
[2018-03-07] MEDS: POTASSIUM CHLORIDE RIDER 10 MEQ in PREMIX 1 EACH IV PRN (07:30)
[2018-03-07] MEDS ORDERED: POTASSIUM CHLORIDE 20 MEQ TABLET PO ONE (08:08)
[2018-03-07] MEDS: INSULIN LISPRO 100 UNIT/ML SUBCUT SCH ×4 (08:17→20:52)
[2018-03-07] MEDS: ASPIRIN EC 81 MG TABLET PO SCH (10:09)
[2018-03-07] MEDS: TICAGRELOR 90 MG TABLET PO SCH ×2 (10:09→20:51)
[2018-03-07] MEDS: CARVEDILOL 3.125 MG TABLET PO SCH ×2 (10:09→17:36)
[2018-03-07] MEDS: ISOSORBIDE MONONITRATE 30 MG TABLET PO SCH (10:10)
[2018-03-07] MEDS: DOCUSATE SODIUM 100 MG CAPSULE PO SCH ×2 (10:10→20:50)
[2018-03-07] MEDS: INSULIN GLARGINE 100 UNIT/ML SUBCUT SCH (10:10)
[2018-03-07] MEDS: LISINOPRIL 2.5 MG TABLET PO SCH (10:11)
[2018-03-07] MEDS: MEROPENEM 1,000 MG in SODIUM CHLORIDE 0.9% 100 ML IV SCH ×2 (10:11→20:52)
[2018-03-07] MEDS: PANTOPRAZOLE 40 MG TABLET PO SCH (10:11)
[2018-03-07] MEDS: ALPRAZolam 0.5 MG TABLET PO PRN ×2 (10:12→20:51)
[2018-03-07] MEDS: ENOXAPARIN 40 MG/0.4 ML SYRINGE SUBCUT SCH (12:04)
[2018-03-07] MEDS: SODIUM CHLORIDE 0.9% 1,000 ML IV SCH ×4 (13:44→23:47)
[2018-03-07] MEDS ORDERED: DIAZEPAM 5 MG TABLET PO ONE (14:00)
[2018-03-07] MEDS ORDERED: diphenhydrAMINE CAP 50 MG CAPSULE ONE (14:03)
[2018-03-07] MEDS ORDERED: diphenhydrAMINE CAP 25 MG CAPSULE PO ONE (14:30)
[2018-03-07] MEDS ORDERED: fentaNYL 100 MCG/2 ML VIAL ONE ×2 (15:33→16:32)
[2018-03-07] MEDS ORDERED: MIDAZOLAM 2 MG/2 ML VIAL ONE (15:33)
[2018-03-07] MEDS ORDERED: LIDOCAINE 1% 20 ML VIAL ONE (15:33)
[2018-03-07] MEDS ORDERED: HEPARIN 5,000 UNIT/1 ML VIAL ONE (15:41)
[2018-03-07] MEDS ORDERED: TIROFIBAN 5,000 MCG/100 ML PREMIX IV ONE (15:51)
[2018-03-07] MEDS ORDERED: TIROFIBAN 5,000 MCG/100 ML PREMIX IV SCH (16:00)
[2018-03-07] MEDS ORDERED: HYDROmorphone 2 MG/1 ML VIAL ONE (16:35)
[2018-03-07] MEDS ORDERED: TICAGRELOR 90 MG TABLET ONE (16:37)
[2018-03-07] MEDS: ACETAMINOPHEN 325 MG TABLET PO SCH ×2 (17:35→23:47)
[2018-03-07] MEDS: GABAPENTIN 300 MG CAPSULE PO SCH ×2 (17:35→18:38)
[2018-03-07] MEDS: SERTRALINE 50 MG TABLET PO SCH (20:51)
[2018-03-07] MEDS: ATORVASTATIN 80 MG TABLET PO SCH (20:51)
[2018-03-08] MEDS: GABAPENTIN 300 MG CAPSULE PO SCH ×5 (00:53→23:48)
[2018-03-08] MEDS: SODIUM CHLORIDE 0.9% 1,000 ML IV SCH ×2 (00:55→14:44)
[2018-03-08 01:34] LABS: Basophils % 0.8 % (0.0-0.8); Eosinophils # 0.2 10*3/uL (0.0-0.87); Eosinophils % 4.5 % (0.00-10.9); Hemoglobin 10.4 GM/DL (12.0-16.0); Immature Granulocytes % 0.4 %; Immature Granulocytes Absolute 0.02 #; Lymphocytes # 1.8 10*3/uL (1.4-4.0); Lymphocytes % 36.8 % (21.3-54.2); Mean Corpuscular HGB Conc 33.5 GM/DL (32-36); Mean Corpuscular Hemoglobin 31 PG (27-34); Mean Corpuscular Volume 92.5 FL (87-102); Mean Platelet Volume 10.1 FL (9.6-12.0); Monocytes # 0.4 10*3/uL (0.11-0.8); Monocytes % 9.1 % (1.7-12.7); Neutrophils # 2.3 10*3/uL (1.4-7.4); Neutrophils % 48.4 % (38.7-73.9); Platelet Count 211 T/CUMM (130-400); Red Blood Count 3.35 MC/CUMM (3.8-5.5); Red Cell Distribution Width 13.2 % (9.3-17.3); White Blood Count 4.8 T/CUMM (4-12)
[2018-03-08 01:51] LABS: Calcium 7.8 MG/DL (8.5-10.1); Osmolality,Calculated 286.4 MOS/KG (273-304); Potassium 3.8 MMOL/L (3.5-5.1)
[2018-03-08] MEDS: HYDROmorphone 2 MG/1 ML VIAL IV PRN ×5 (03:51→21:16)
[2018-03-08] MEDS: ACETAMINOPHEN 325 MG TABLET PO SCH ×4 (05:35→23:43)
[2018-03-08] MEDS: MEROPENEM 1,000 MG in SODIUM CHLORIDE 0.9% 100 ML IV SCH ×2 (08:50→21:17)
[2018-03-08] MEDS: ISOSORBIDE MONONITRATE 30 MG TABLET PO SCH (08:51)
[2018-03-08] MEDS: LISINOPRIL 2.5 MG TABLET PO SCH (08:51)
[2018-03-08] MEDS: INSULIN GLARGINE 100 UNIT/ML SUBCUT SCH (08:52)
[2018-03-08] MEDS: PANTOPRAZOLE 40 MG TABLET PO SCH (08:52)
[2018-03-08] MEDS: CARVEDILOL 3.125 MG TABLET PO SCH ×2 (08:52→17:14)
[2018-03-08] MEDS: DOCUSATE SODIUM 100 MG CAPSULE PO SCH ×2 (08:52→21:16)
[2018-03-08] MEDS: ASPIRIN EC 81 MG TABLET PO SCH (08:52)
[2018-03-08] MEDS: TICAGRELOR 90 MG TABLET PO SCH ×2 (08:52→21:16)
[2018-03-08] MEDS: INSULIN LISPRO 100 UNIT/ML SUBCUT SCH ×4 (10:50→21:15)
[2018-03-08] MEDS ORDERED: GLUCAGON 1 MG VIAL IM PRN (12:24)
[2018-03-08] MEDS ORDERED: DEXTROSE 50% 25 GM/50 ML VIAL IV PRN (12:24)
[2018-03-08] MEDS ORDERED: ENOXAPARIN 40 MG/0.4 ML SYRINGE SUBCUT SCH (21:00)
[2018-03-08] MEDS: ATORVASTATIN 80 MG TABLET PO SCH (21:16)
[2018-03-08] MEDS: ALPRAZolam 0.5 MG TABLET PO PRN (21:16)
[2018-03-08] MEDS: SERTRALINE 50 MG TABLET PO SCH (21:16)
[2018-03-09] MEDS: HYDROmorphone 2 MG/1 ML VIAL IV PRN ×3 (01:25→10:39)
[2018-03-09] MEDS: SODIUM CHLORIDE 0.9% 1,000 ML IV SCH ×2 (03:27→09:19)
[2018-03-09 05:27] LABS: Basophils % 0.7 % (0.0-0.8); Eosinophils # 0.3 10*3/uL (0.0-0.87); Eosinophils % 5.9 % (0.00-10.9); Hematocrit 32.7 VOL% (35.7-47.0); Hemoglobin 11.1 GM/DL (12.0-16.0); Immature Granulocytes % 0.3 %; Immature Granulocytes Absolute 0.02 #; Lymphocytes # 2.3 10*3/uL (1.4-4.0); Lymphocytes % 40.1 % (21.3-54.2); Mean Corpuscular HGB Conc 33.9 GM/DL (32-36); Mean Corpuscular Hemoglobin 31 PG (27-34); Mean Corpuscular Volume 89.8 FL (87-102); Mean Platelet Volume 9.8 FL (9.6-12.0); Monocytes # 0.5 10*3/uL (0.11-0.8); Monocytes % 8.4 % (1.7-12.7); Neutrophils # 2.6 10*3/uL (1.4-7.4); Neutrophils % 44.6 % (38.7-73.9); Platelet Count 253 T/CUMM (130-400); Red Blood Count 3.64 MC/CUMM (3.8-5.5); Red Cell Distribution Width 13.1 % (9.3-17.3); White Blood Count 5.7 T/CUMM (4-12)
[2018-03-09 05:43] LABS: Calcium 8.1 MG/DL (8.5-10.1); Osmolality,Calculated 279.5 MOS/KG (273-304); Potassium 3.4 MMOL/L (3.5-5.1)
[2018-03-09] MEDS: GABAPENTIN 300 MG CAPSULE PO SCH ×2 (06:16→12:22)
[2018-03-09] MEDS: ACETAMINOPHEN 325 MG TABLET PO SCH ×2 (06:16→12:22)
[2018-03-09] MEDS: POTASSIUM CHLORIDE 20 MEQ TABLET PO PRN ×3 (06:30→12:22)
[2018-03-09] MEDS ORDERED: ISOSORBIDE MONONITRATE 30 MG TABLET PO SCH (09:00)
[2018-03-09] MEDS: INSULIN LISPRO 100 UNIT/ML SUBCUT SCH ×3 (09:18→17:09)
[2018-03-09] MEDS: LISINOPRIL 2.5 MG TABLET PO SCH (09:19)
[2018-03-09] MEDS: DOCUSATE SODIUM 100 MG CAPSULE PO SCH (09:19)
[2018-03-09] MEDS: CARVEDILOL 3.125 MG TABLET PO SCH ×2 (09:19→17:10)
[2018-03-09] MEDS: ASPIRIN EC 81 MG TABLET PO SCH (09:19)
[2018-03-09] MEDS: PANTOPRAZOLE 40 MG TABLET PO SCH (09:19)
[2018-03-09] MEDS: INSULIN GLARGINE 100 UNIT/ML SUBCUT SCH (09:20)
[2018-03-09] MEDS: MEROPENEM 1,000 MG in SODIUM CHLORIDE 0.9% 100 ML IV SCH (09:20)
[2018-03-09] MEDS: TICAGRELOR 90 MG TABLET PO SCH (09:20)
[2018-03-09] MEDS: MAGNESIUM SULF RIDER 2 GM in PREMIX 1 EACH IV PRN (10:40)
[2018-03-09 11:52] VITALS: BP 109/69
[2018-03-09] MEDS: ONDANSETRON 4 MG/2 ML VIAL IV PRN (13:26)
[2018-03-09] MEDS ORDERED: GABAPENTIN 600 MG TABLET PO SCH (21:00)
== END 2018-03-09 17:10 | disposition home or self-care (01) | DRG 981 ==
LOC: N.ED 18:52 → N.EDINP 20:17 → N.CC 20:29 → N.TELEN 03-06 15:16
PROVIDERS: ADMIT Family Medicine; ATTEND Family Medicine
PROC: CLCCHCL (ICD-10-PCS; 2018-03-07 15:15)

== ENCOUNTER 2018-04-15 18:23 | Inpatient (IN) ==
[2018-04-15 18:42] LABS: Basophils # 0.1 10*3/uL (0.0-0.2); Basophils % 0.5 % (0.0-0.8); Eosinophils # 0.1 10*3/uL (0.0-0.87); Eosinophils % 1.1 % (0.00-10.9); Hematocrit 40.6 VOL% (35.7-47.0); Hemoglobin 13.5 GM/DL (12.0-16.0); Immature Granulocytes % 0.5 %; Immature Granulocytes Absolute 0.05 #; Lymphocytes # 1.4 10*3/uL (1.4-4.0); Lymphocytes % 14.7 % (21.3-54.2); Mean Corpuscular HGB Conc 33.3 GM/DL (32-36); Mean Corpuscular Hemoglobin 30 PG (27-34); Mean Corpuscular Volume 90.2 FL (87-102); Mean Platelet Volume 9.4 FL (9.6-12.0); Monocytes # 0.7 10*3/uL (0.11-0.8); Monocytes % 7.6 % (1.7-12.7); Neutrophils # 7.2 10*3/uL (1.4-7.4); Neutrophils % 75.6 % (38.7-73.9); Platelet Count 381 T/CUMM (130-400); Red Cell Distribution Width 13.5 % (9.3-17.3); White Blood Count 9.6 T/CUMM (4-12)
[2018-04-15 18:53] LABS: Apearance,Urine CLEAR (Clear); Bilirubin,Urine Negative (Negative); Blood, Urine Negative (Negative); Glucose,Urine (UA) >=500 mg/dL (Negative); Ketones,Urine 20 mg/dL (Negative); Mucus,Urine Occasional /LPF (Occasional); Nitrite,Urine Negative (Negative); Protein,Urine Negative; RBC,Urine 1 /HPF (0-4); Squamous Epithelial Cell,Urine Occasional /HPF (0-10); Urine Color Straw (Yellow); Urine Specific Gravity 1.032 (1.001-1.035); Urine Urobilinogen < 2.0 EU/DL (0.2-1.0); WBC,Urine <1 /HPF (0-6)
[2018-04-15 19:02] LABS: Albumin 4.2 G/DL (3.4-5.0); Bilirubin,Total 0.4 MG/DL (0.2-1.0); Calcium 8.1 MG/DL (8.5-10.1); Osmolality,Calculated 278.5 MOS/KG (273-304); Potassium 3.8 MMOL/L (3.5-5.1); Total Protein 8.5 G/DL (6.4-8.3)
[2018-04-15] MEDS ORDERED: SODIUM CHLORIDE 0.9% 1,000 ML IV STA ×2 (19:20→20:33)
[2018-04-15] MEDS ORDERED: INSULIN REGULAR 100 UNIT/ML IV STA (19:20)
[2018-04-15] MEDS ORDERED: MEPERIDINE 25 MG/1 ML VIAL IV STA (20:04)
[2018-04-15] MEDS ORDERED: ONDANSETRON 4 MG/2 ML VIAL IV STA (20:04)
[2018-04-15 20:13] LABS: ABG Base Excess 0.4 MMOL/L (-2.5-2.5); ABG HCO3 24.8 MMOL/L (20-26); ABG Oxygen Saturation 97.7 % (95-100); ABG PCO2 38.3 MM HG (35-48); ABG PH 7.418 (7.35-7.45); ABG PO2 90.8 MM HG (80-95); ABG TCO2 21.8 MMOL/L (23-27); Allen Test Positive; Pt O2 Delivery Device Room Air
[2018-04-15] MEDS ORDERED: DEXTROSE 50% 25 GM/50 ML VIAL IV PRN (20:24)
[2018-04-15] MEDS ORDERED: GLUCAGON 1 MG VIAL IM PRN (20:24)
[2018-04-15] MEDS ORDERED: INSULIN REGULAR 100 UNIT/ML SUBCUT PRN (20:30)
[2018-04-16] MEDS: LACTATED RINGERS 1,000 ML IV SCH ×2 (00:42→10:38)
[2018-04-16 06:26] LABS: Calcium 7.7 MG/DL (8.5-10.1); Osmolality,Calculated 277.4 MOS/KG (273-304); Potassium 3.3 MMOL/L (3.5-5.1)
[2018-04-16] MEDS ORDERED: ALPRAZolam 0.5 MG TABLET PO PRN (09:10)
[2018-04-16] MEDS ORDERED: PROMETHAZINE 25 MG/1 ML VIAL IM PRN (09:13)
[2018-04-16] MEDS: HYDROmorphone 2 MG/1 ML VIAL IV PRN ×4 (09:46→23:55)
[2018-04-16] MEDS: SODIUM CHLOR 0.9% KCL 40 MEQ 40 MEQ/1,000 ML BAG IV SCH (09:46)
[2018-04-16] MEDS: INSULIN LISPRO 100 UNIT/ML SUBCUT SCH ×3 (12:56→23:26)
[2018-04-16] MEDS: ONDANSETRON 4 MG/2 ML VIAL IV PRN (12:56)
[2018-04-16] MEDS ORDERED: BISACODYL 5 MG TABLET PO ONE (13:01)
[2018-04-16] MEDS: CARVEDILOL 3.125 MG TABLET PO SCH (16:44)
[2018-04-16] MEDS: GABAPENTIN 300 MG CAPSULE PO SCH ×2 (17:39→23:52)
[2018-04-16] MEDS: DOCUSATE SODIUM 100 MG CAPSULE PO SCH (21:38)
[2018-04-16] MEDS: ATORVASTATIN 80 MG TABLET PO SCH (21:39)
[2018-04-16] MEDS: TICAGRELOR 90 MG TABLET PO SCH (21:39)
[2018-04-16] MEDS: MAGNESIUM OXIDE 400 MG TABLET PO SCH (21:39)
[2018-04-16] MEDS: SERTRALINE 50 MG TABLET PO SCH (21:39)
[2018-04-17] MEDS: SODIUM CHLOR 0.9% KCL 40 MEQ 40 MEQ/1,000 ML BAG IV SCH ×2 (00:53→14:09)
[2018-04-17] MEDS: HYDROmorphone 2 MG/1 ML VIAL IV PRN ×5 (04:40→23:29)
[2018-04-17 05:37] LABS: Calcium 8.3 MG/DL (8.5-10.1); Osmolality,Calculated 279.8 MOS/KG (273-304); Potassium 4.8 MMOL/L (3.5-5.1)
[2018-04-17] MEDS: GABAPENTIN 300 MG CAPSULE PO SCH ×3 (06:01→17:24)
[2018-04-17] MEDS: DOCUSATE SODIUM 100 MG CAPSULE PO SCH ×2 (08:56→21:20)
[2018-04-17] MEDS: TICAGRELOR 90 MG TABLET PO SCH ×2 (08:56→21:20)
[2018-04-17] MEDS: LISINOPRIL 2.5 MG TABLET PO SCH (08:57)
[2018-04-17] MEDS: CARVEDILOL 3.125 MG TABLET PO SCH ×2 (08:57→17:24)
[2018-04-17] MEDS: INSULIN GLARGINE 100 UNIT/ML SUBCUT SCH (08:57)
[2018-04-17] MEDS: MAGNESIUM OXIDE 400 MG TABLET PO SCH ×2 (08:57→21:20)
[2018-04-17] MEDS: PANTOPRAZOLE 40 MG TABLET PO SCH (08:57)
[2018-04-17] MEDS: INSULIN LISPRO 100 UNIT/ML SUBCUT SCH ×4 (08:57→21:20)
[2018-04-17] MEDS: ASPIRIN EC 81 MG TABLET PO SCH (08:57)
[2018-04-17] MEDS ORDERED: MAGNESIUM SULF RIDER 2 GM in PREMIX 1 EACH IV PRN (15:50)
[2018-04-17] MEDS ORDERED: MAGNESIUM SULF RIDER 4 GM in PREMIX 1 EACH IV PRN (15:50)
[2018-04-17] MEDS: ATORVASTATIN 80 MG TABLET PO SCH (21:20)
[2018-04-17] MEDS: SERTRALINE 50 MG TABLET PO SCH (21:20)
[2018-04-17] MEDS: ONDANSETRON 4 MG/2 ML VIAL IV PRN (22:52)
[2018-04-18] MEDS: GABAPENTIN 300 MG CAPSULE PO SCH ×5 (03:00→23:48)
[2018-04-18] MEDS: HYDROmorphone 2 MG/1 ML VIAL IV PRN ×5 (04:26→23:40)
[2018-04-18] MEDS: ONDANSETRON 4 MG/2 ML VIAL IV PRN (04:27)
[2018-04-18] MEDS: INSULIN LISPRO 100 UNIT/ML SUBCUT SCH ×4 (09:12→21:52)
[2018-04-18] MEDS: INSULIN GLARGINE 100 UNIT/ML SUBCUT SCH (09:13)
[2018-04-18] MEDS: LISINOPRIL 2.5 MG TABLET PO SCH (09:18)
[2018-04-18] MEDS: DOCUSATE SODIUM 100 MG CAPSULE PO SCH ×2 (09:18→21:51)
[2018-04-18] MEDS: ASPIRIN EC 81 MG TABLET PO SCH (09:18)
[2018-04-18] MEDS: MAGNESIUM OXIDE 400 MG TABLET PO SCH ×2 (09:19→21:51)
[2018-04-18] MEDS: TICAGRELOR 90 MG TABLET PO SCH ×2 (09:19→21:51)
[2018-04-18] MEDS: PANTOPRAZOLE 40 MG TABLET PO SCH (09:19)
[2018-04-18] MEDS: CARVEDILOL 3.125 MG TABLET PO SCH ×2 (09:19→17:17)
[2018-04-18 09:32] LABS: Basophils # 0.1 10*3/uL (0.0-0.2); Basophils % 0.7 % (0.0-0.8); Eosinophils # 0.1 10*3/uL (0.0-0.87); Eosinophils % 1.8 % (0.00-10.9); Hematocrit 35.7 VOL% (35.7-47.0); Hemoglobin 11.7 GM/DL (12.0-16.0); Immature Granulocytes % 0.4 %; Immature Granulocytes Absolute 0.03 #; Lymphocytes # 1.2 10*3/uL (1.4-4.0); Lymphocytes % 17.1 % (21.3-54.2); Mean Corpuscular HGB Conc 32.8 GM/DL (32-36); Mean Corpuscular Hemoglobin 30 PG (27-34); Mean Corpuscular Volume 91.1 FL (87-102); Mean Platelet Volume 9.5 FL (9.6-12.0); Monocytes # 0.6 10*3/uL (0.11-0.8); Monocytes % 7.7 % (1.7-12.7); Neutrophils # 5.2 10*3/uL (1.4-7.4); Neutrophils % 72.3 % (38.7-73.9); Platelet Count 266 T/CUMM (130-400); Red Blood Count 3.92 MC/CUMM (3.8-5.5); Red Cell Distribution Width 13.2 % (9.3-17.3); White Blood Count 7.3 T/CUMM (4-12)
[2018-04-18 09:49] LABS: Calcium 7.9 MG/DL (8.5-10.1); Potassium 4.2 MMOL/L (3.5-5.1)
[2018-04-18 15:45] LABS: Apearance,Urine CLOUDY (Clear); Bilirubin,Urine Negative (Negative); Blood, Urine Moderate mg/dL (Negative); Glucose,Urine (UA) Negative (Negative); Ketones,Urine Negative (Negative); Mucus,Urine Moderate /LPF (Occasional); Nitrite,Urine Negative (Negative); Protein,Urine 100 MG/DL; RBC,Urine 107 /HPF (0-4); Squamous Epithelial Cell,Urine Few /HPF (0-10); Urine Color Yellow (Yellow); Urine Specific Gravity 1.018 (1.001-1.035); WBC,Urine 528 /HPF (0-6)
[2018-04-18] MEDS: cefTRIAXone 1,000 MG in SYRINGE 1 EACH IV SCH (17:18)
[2018-04-18] MEDS: ATORVASTATIN 80 MG TABLET PO SCH (21:51)
[2018-04-18] MEDS: SERTRALINE 50 MG TABLET PO SCH (21:51)
[2018-04-19] MEDS: HYDROmorphone 2 MG/1 ML VIAL IV PRN ×3 (05:35→13:40)
[2018-04-19] MEDS: GABAPENTIN 300 MG CAPSULE PO SCH ×2 (05:35→12:59)
[2018-04-19] MEDS: INSULIN GLARGINE 100 UNIT/ML SUBCUT SCH (08:24)
[2018-04-19] MEDS: INSULIN LISPRO 100 UNIT/ML SUBCUT SCH ×3 (08:24→17:59)
[2018-04-19] MEDS: LISINOPRIL 2.5 MG TABLET PO SCH (08:25)
[2018-04-19] MEDS: ASPIRIN EC 81 MG TABLET PO SCH (08:26)
[2018-04-19] MEDS: MAGNESIUM OXIDE 400 MG TABLET PO SCH (08:26)
[2018-04-19] MEDS: TICAGRELOR 90 MG TABLET PO SCH (08:26)
[2018-04-19] MEDS: DOCUSATE SODIUM 100 MG CAPSULE PO SCH (08:26)
[2018-04-19] MEDS: CARVEDILOL 3.125 MG TABLET PO SCH ×2 (08:26→16:26)
[2018-04-19] MEDS: PANTOPRAZOLE 40 MG TABLET PO SCH (08:26)
[2018-04-19 15:53] VITALS: BP 104/64
[2018-04-19] MEDS: cefTRIAXone 1,000 MG in SYRINGE 1 EACH IV SCH (16:27)
== END 2018-04-19 17:33 | disposition home or self-care (01) | DRG 638 ==
LOC: N.ED 18:23 → N.EDINP 20:23 → N.5E 21:35
PROVIDERS: ADMIT Family Medicine; ATTEND Family Medicine